=== PATIENT | female | born 1940 | race Caucasian/White ===

== ENCOUNTER → 2016-12-19 | Outpatient (CLI) | payer MEDICARE, BC ==
[~2016-12-19] MED LIST: AMLODIPINE BESYL5 MG PO; AMLODIPINE-BEN1 EAC3 PO; ANASTROZOLE1 MG PO; ASPIRIN81 M2 PO; ATORVASTATIN CA10 MG PO; CARBATROL100 MG PO; CLOPIDOGREL75 MG PO; CLOTRIMAZOLE-BE45 GM; GABAPENTIN300 M2 PO; GLIPIZIDE-METFO1 TA5 PO; GLUCOPHAGE500 M1 PO; GLYBURIDE-METFO1 TA3 PO; ISOSORBIDE DINI30 MG PO; KLOR-CON PO; LASIX20 MG PO; LIPITOR20 MG PO; LOPRESSOR PO; LORTAB 7.5-5001 TAB; LORTAB 7.5-5001 TAB PO; METFORMIN PO; PHENERGAN25 MG; VITAMIN B650 M1 PO; VOLTAREN75 MG PO; ZESTRIL10 M2 PO
--- NOTE | ~2016-12-19 | MY29 ---
[facility]. [facility] A Service of [facility] & [facility] RADIOLOGY TEXT RESULTS PATIENT: ARLETTE ROMO LOCATION: [facility] : 40 UNIT #: [id number] AGE: [address]: Kalen Greene MD SEX: F ORDER DR: [id number] [facility] [address] [place], [place] [address] [id number] O MR#: [id number] Acc #: [id number] NAME: ARLETTE ROMO. : 1940 SEX: F STUDY DATE/TIME: 12/19/2016 11:01 UNIT: [facility] ROOM: STUDY DESCRIPTION: [facility] SCREENING W/ CAD BILAT Attending Physician: Kalen Greene M.D. Ordering Physician: Kalen Greene M.D. Primary Care Physician: Dae Ballard Jr., M.D. MEDICAL IMAGING REPORT This report is preliminary unless electronic signature is present EXAM Bilateral digital screening mammogram with CAD DATE 12/19/2016 HISTORY 76-year-old female with history of right breast cancer at the age of 59. No current complaints. COMPARISON Bilateral screening mammogram 12/17/2015. Bilateral diagnostic mammogram 12/14/2014, 11/25/2013. FINDINGS CC and MLO views were obtained of each breast utilizing digital technique and reviewed with an FDA-approved CAD device. Architectural distortion, skin thickening and skin retraction changes within the right breast are similar to prior examination, consistent with post lumpectomy and radiation therapy change. Biopsy clips are located within the posterior hemisphere of the right breast, unchanged. Heterogeneously dense fibroglandular densities are present. Subareolar nodule in the left breast measuring nearly 1.3 cm containing an eccentric coarse calcification is unchanged from 2014. No new or developing nodule is identified on either side. Benign calcifications are present bilaterally. No suspicious clustered microcalcification. IMPRESSION 1. BIRADS category 2. Benign findings. Post lumpectomy and radiation therapy changes in the right breast. Stable left breast subareolar nodular density. There are no new findings suspicious for STS. [facility] A Service of [facility] & [facility] RADIOLOGY TEXT RESULTS PATIENT: ARLETTE ROMO LOCATION: [facility] : 40 UNIT #: [id number] AGE: [address]: Kalen Greene MD SEX: F ORDER DR: malignancy. Routine bilateral screening mammogram is recommended in 1 year. Patients over the age of 40 are entered into a reminder system with target due date for the next mammogram. A result letter will also be sent to the patient. BIRADS: 2, benign findings Dictated by... Licha Perez M.D. THIS IS AN ELECTRONICALLY VERIFIED REPORT Licha Perez M.D. at 12/24/2016 3:26 PM DIPTI/cecille TD: 12/19/2016 23:51 JOB #: [id number] MEDICAL IMAGING REPORT Page 1 of 1 COPY
== END | disposition home or self-care (01) ==
LOC: CWCC 10:28
DX: Z12.31 Encounter for screening mammogram for malignant neoplasm of breast (principal); Z85.3 Personal history of malignant neoplasm of breast; N63 Unspecified lump in breast; Z98.890 Other specified postprocedural states
CPT/HCPCS: G0202